=== PATIENT | male | born 1990 | race Caucasian/White ===

== ENCOUNTER 2022-01-08 04:29 | Emergency (ER) | payer SELFPAY ==
[2022-01-08 04:47] VITALS: TEMP 98.3; BMI 39.5
[2022-01-08] MEDS ORDERED: ACETAMINOPHEN 500 MG TABLET (FP) PO ONE (05:25)
[2022-01-08] MEDS ORDERED: ACETAMINOPHEN 325 MG TABLET (FP) ONE (05:33)
[2022-01-08 05:44] VITALS: BP 130/83; PULSE 66
[2022-01-08 06:16] LABS: BASO % 0.9 % (0-2.0); EOS % 2.7 % (0-4.5); HEMATOCRIT 40.5 % (35.4-49); HEMOGLOBIN 13.7 GM/dL (11.7-16.9); LYMPH % 40.5 % (8-40); MCHC 33.7 g/dl (32.0-35.9); MEAN CELL VOLUME 85.9 fl (80-96); MEAN PLT VOLUME 8.8 fl (7.5-11.1); MONO % 5.1 % (3.8-10.2); NEUT % 50.8 % (42.8-82.8); PLATELET COUNT 248 10^3/uL (134-434); RBC 4.72 M/mm3 (4.00-5.60); RDW 13.2 % (11.9-15.9)
[2022-01-08 06:17] LABS: CALCIUM 8.9 mg/dL (8.5-10.1)
[2022-01-08 06:18] LABS: BLOOD UREA NITROGEN 14.5 mg/dL (7-18)
[2022-01-08 06:21] LABS: CREATININE 0.6 mg/dL (0.55-1.3)
[2022-01-08 06:22] LABS: BILIRUBIN,TOTAL 0.2 mg/dL (0.2-1)
[2022-01-08 06:23] LABS: TOT PROT 7.6 g/dl (6.4-8.2)
== END 2022-01-08 06:40 | disposition home or self-care (01) ==
LOC: JER 04:29
DX: R10.32 Left lower quadrant pain (principal)
CPT/HCPCS: 36415; 80053; 85025; 99283-25